=== PATIENT | female | born 1970 | race Two or more races ===

== ENCOUNTER → 2016-07-18 | Outpatient (CLI) | payer BC ==
[2016-07-18 17:07] LABS: CHLORIDE,CL 107 mmol/L (98-110); SODIUM,NA 137 mmol/L (136-146)
== END ==
LOC: MW.LAB 16:17
PROVIDERS: ATTEND Internal Medicine Rheumatology
DX: Z03.6 Encounter for observation for suspected toxic effect from ingested substance ruled out (principal); M06.9 Rheumatoid arthritis, unspecified
CPT/HCPCS: 36415; 80053; 85027; 86140

== ENCOUNTER 2017-04-14 15:40 | Emergency (ER) | payer BC ==
--- NOTE | 2017-04-14 16:11 | EDM.PDOC ---
ED HPI GENERAL MEDICAL PROBLEM - General Chief Complaint: General Stated Complaint: PER PT. SHE IS BEING TREATED FOR THE FLU Time Seen by Provider: 04/14/17 15:59 - History of Present Illness INITIAL COMMENTS - FREE TEXT/NARRATIVE: HISTORY AND PHYSICAL: History of present illness: Patient 46-year-old white female presents with a concern of cough myalgias history of fever and dizziness she states she was treated empirically recently with Tamiflu she did get a flu immunization. She denies chest pain or shortness of breath denies abdominal pain he states she has been taking fluids without any nausea or vomiting Review of systems: As per history of present illness and below otherwise all systems reviewed and negative. Past medical history: As per history of present illness and as reviewed below otherwise noncontributory. Surgical history: As per history of present illness and as reviewed below otherwise noncontributory. Social history: No reported history of drug or alcohol abuse. Family history: As per history of present illness and as reviewed below otherwise noncontributory. Physical exam: HEENT: Atraumatic, normocephalic, pupils reactive, negative for conjunctival pallor or scleral icterus, mucous membranes moist, throat clear, neck supple, nontender, trachea midline. Lungs: Clear to auscultation, breath sounds equal bilaterally, chest nontender. Heart: S1S2, regular, negative for clicks, rubs, or JVD. Abdomen: Soft, nondistended, nontender. Negative for masses or hepatosplenomegaly. Negative for costovertebral tenderness. Pelvis: Stable nontender. Genitourinary: Deferred. Rectal: Deferred. Extremities: Atraumatic, negative for cords or calf pain. Neurovascular unremarkable. Neuro: Awake, alert, oriented. Cranial nerves II through XII unremarkable. Cerebellum unremarkable. Motor and sensory unremarkable throughout. Exam nonfocal. Diagnostics: CBC CMP UA chest x-ray EKG influenza screen Therapeutics: None Impression: #1 viral syndrome Definitive disposition and diagnosis as appropriate pending reevaluation and review of above. - Related Data Allergies Allergy/AdvReac Type Severity Reaction Status Date / Time hydrocodone Allergy Hives Verified 04/14/17 16:14 Home Meds: Home Meds Calcium Carb & Citrate/Vit D3 [Citracal + D ER] 1 tab PO DAILY 09/29/14 [History ] Etanercept [Enbrel] 1 injection IM WEEKLY 09/29/14 [History] Fish Oil/[place]-3 Fatty Acids [Fish Oil 1,000 MG] 1 tab PO DAILY 09/29/14 [ History] Folic Acid 1 tab PO DAILY 09/29/14 [History] Hydroxychloroquine [Plaquenil] 200 mg PO DAILY 09/29/14 [History] Methotrexate 5 tab PO WEEKLY 09/29/14 [History] predniSONE [Prednisone] 20 mg PO WEEKLY 09/30/14 [History] Cranberry 1 tab PO DAILY 08/21/15 [History] Cream Base No.103 [Lipovan] 1 applic TOP ASDIRECTED PRN 08/21/15 [History] Loperamide [Imodium] 1 tab PO ASDIRECTED PRN 08/21/15 [History] Multivits,Ca,Minerals/Iron/FA [One-A-Day Women's] 1 tab PO DAILY 08/21/15 [ History] Sertraline [Zoloft] 1 tab PO DAILY 08/21/15 [History] Past Medical History Other HEENT History: uses reading glasses Cardiovascular History: Reports: Arrhythmia Other Cardiovascular History: PAC's, PVC's Respiratory History: Reports: None Other Gastrointestinal History: recent UTI Genitourinary History: Reports: None Other Genitourinary History: stress incontinence CHIEF OF [employer] PATROL History: Reports: Musculoskeletal History: Reports: RA Neurological History: Reports: None Psychiatric History: Reports: Depression Endocrine/Metabolic History: Reports: Obesity/BMI 30+ Hematologic History: Reports: None Immunologic History: Reports: None Oncologic (Cancer) History: Reports: None Dermatologic History: Reports: None - Past Surgical History Female Surgical History: Reports: Section, Hysterectomy Musculoskeletal Surgical History: Reports: Other (See Below) Social & Family History - Tobacco Use Smoking Status *Q: Former Smoker - Recreational Drug Use Recreational Drug Use: No Drug Use in Last 12 Months: No ED ROS GENERAL - Review of Systems Review Of Systems: ROS reveals no pertinent complaints other than HPI. ED EXAM, GENERAL - Physical Exam Exam: See Below (See dictation) Course - Vital Signs Last Recorded V/S: Last Vital Signs Temp 36.9 C 04/14/17 16:00 Pulse 82 04/14/17 16:00 Resp 18 04/14/17 16:00 BP 133/87 04/14/17 16:00 Pulse Ox 96 04/14/17 16:00 - Orders/Labs/Meds Orders: Active Orders 24 hr Category Date Time Status EKG Documentation Completion [RC] STAT Care 04/14/17 16:12 Active Labs: Laboratory Tests 04/14/17 04/14/17 04/14/17 Range/Units 16:29 16:29 17:10 WBC 6.89 (4.0-11.0) K/uL RBC 4.22 L (4.30-5.90) M/uL Hgb 13.5 (12.0-16.0) g/dL Hct 39.0 (36.0-46.0) % MCV 92.4 (80.0-98.0) fL MCH 32.0 (27.0-32.0) pg MCHC 34.6 (31.0-37.0) g/dL RDW Std Deviation 40.9 (28.0-62.0) fl RDW Coeff of [place]ma 12 (11.0-15.0) % Plt Count 212 (150-400) K/uL MPV 9.80 (7.40-12.00) fL Neut % (Auto) 51.1 (48.0-80.0) % Lymph % (Auto) 39.3 (16.0-40.0) % [place] % (Auto) 8.0 (0.0-15.0) % Eos % (Auto) 1.3 (0.0-7.0) % Baso % (Auto) 0.3 (0.0-1.5) % Neut # (Auto) 3.5 (1.4-5.7) K/uL Lymph # (Auto) 2.7 H (0.6-2.4) K/uL [place] # (Auto) 0.6 (0.0-0.8) K/uL Eos # (Auto) 0.1 (0.0-0.7) K/uL Baso # (Auto) 0.0 (0.0-0.1) K/uL Nucleated RBC % 0.0 /100WBC Nucleated RBCs # 0 K/uL Sodium 141 (136-146) mmol/L Potassium 4.0 (3.5-5.1) mmol/L Chloride 111 H (98-110) mmol/L Carbon Dioxide 21 (21-31) mmol/L BUN 8 (6.0-23.0) mg/dL Creatinine 0.7 (0.6-1.5) mg/dL Est Cr Clr Drug Dosing 100.22 mL/min Estimated GFR (MDRD) > 60.0 ml/min Glucose 118 H (60-110) mg/dL Calcium 9.0 (8.8-10.8) mg/dL Total Bilirubin 0.4 (0.1-1.5) mg/dL AST 26 (5-40) IU/L ALT 40 (8-54) IU/L Alkaline Phosphatase 61 (40-150) Total Protein 6.8 (6.0-8.0) g/dL Albumin 4.1 (3.5-5.0) g/dL Globulin 2.7 (2.0-3.5) g/dL Albumin/Globulin Ratio 1.5 (1.3-2.8) Urine Color YELLOW Urine Appearance CLEAR Urine pH 7.0 (5.0-8.0) Ur Specific [place] 1.015 (1.001-1.035) Urine Protein NEGATIVE (NEGATIVE) mg/dL Urine Glucose (UA) NEGATIVE (NEGATIVE) mg/dL Urine Ketones NEGATIVE (NEGATIVE) mg/dL Urine Occult Blood NEGATIVE (NEGATIVE) Urine Nitrite NEGATIVE (NEGATIVE) Urine Bilirubin NEGATIVE (NEGATIVE) Urine Urobilinogen 0.2 (<2.0) EU/dL Ur Leukocyte Esterase NEGATIVE (NEGATIVE) Urine RBC 0-1 (0-2/HPF) Urine WBC 0-1 (0-5/HPF) Ur Epithelial Cells RARE (NONE-FEW) Urine Bacteria RARE (NEGATIVE) Departure - Departure Time of Disposition: 17:33 Disposition: Home, Self-Care 01 Condition: Good Clinical Impression: Influenza - Discharge Information Referrals: PCP,None [Primary Care Provider] - Forms: ED Department Discharge Additional Instructions: The following information is given to patients seen in the emergency department who are being discharged to home. This information is to outline your options for follow-up care. We provide all patients seen in our emergency department with a follow-up referral. The need for follow-up, as well as the timing and circumstances, are variable depending upon the specifics of your emergency department visit. If you don't have a primary care physician on staff, we will provide you with a referral. We always advise you to contact your personal physician following an emergency department visit to inform them of the circumstance of the visit and for follow-up with them and/or the need for any referrals to a consulting specialist. The emergency department will also refer you to a specialist when appropriate. This referral assures that you have the opportunity for followup care with a specialist. All of these measure are taken in an effort to provide you with optimal care, which includes your followup. Under all circumstances we always encourage you to contact your private physician who remains a resource for coordinating your care. When calling for followup care, please make the office aware that this follow-up is from your recent emergency room visit. If for any reason you are refused follow-up, please contact the [facility] emergency department at and asked to speak to the emergency department charge nurse. Motrin/Tylenol as directed continue current medications push fluids return as needed as discussed - My Orders Last 24 Hours: My Active Orders 04/14/17 16:12 EKG Documentation Completion [RC] STAT - Assessment/Plan Last 24 Hours: My Active Orders 04/14/17 16:12 EKG Documentation Completion [RC] STAT
[2017-04-14 16:59] LABS: CHLORIDE,CL 111 mmol/L (98-110); SODIUM,NA 141 mmol/L (136-146)
--- NOTE | 2017-04-14 17:25 | CR ---
EXAM DATE: 04/14/17 PATIENT'S AGE: 46 Patient: KATHY VÁSQUEZ Facility: [place], [place] Site . Site : 1970 Study: XRay Chest [id number] 4:49:16 PM Ordering Physician: Elo Cobb Final Report: INDICATION: Cough. Short of breath. TECHNIQUE: PA and lateral views of the chest. COMPARISON: 08/07/2014. FINDINGS: Cardiac, mediastinal and hilar contours are normal. Normal pulmonary vasculature. Lungs are clear. No pleural fluid or pneumothorax. IMPRESSION: No signs of acute thoracic disease. Dictated by Jeet Snowden MD @ 04/14/2017 5:06:10 PM Dictated by: Jeet Snowden MD @ 04/14/2017 17:06:19 (Electronic Signature) Report Signed by Proxy. [facility] CENTERDarshan
[2017-04-14 17:59] VITALS: BP 122/81
== END 2017-04-14 17:44 | disposition home or self-care (01) ==
LOC: MW.ED 15:40
DX: J10.1 Influenza due to other identified influenza virus with other respiratory manifestations (principal); B34.9 Viral infection, unspecified; F32.9 Major depressive disorder, single episode, unspecified; Z88.5 Allergy status to narcotic agent; Z87.891 Personal history of nicotine dependence; Z79.899 Other long term (current) drug therapy
CPT/HCPCS: 36415; 71046; 71046-26; 80053; 81001; 85025; 87804; 93005; 99283; 99285-25

== ENCOUNTER 2024-02-23 19:03 | Emergency (ER) | payer BC ==
[2024-02-23] MEDS: Rabies Immune Globulin/PF (HyperRAB) 300 UNIT/ML 1 ML SDV IM ONE (20:30)
[2024-02-23] MEDS: Rabies Vaccine (Avian) 2.5 Unit Inj Kit IM ONE (20:34)
[2024-02-24 03:09] VITALS: BP 117/69; PULSE 60
== END 2024-02-23 21:10 | disposition home or self-care (01) ==
LOC: MW.ED 19:03
DX: S61.451A Open bite of right hand, initial encounter (principal); F17.210 Nicotine dependence, cigarettes, uncomplicated; E66.9 Obesity, unspecified; Z29.14 Encounter for prophylactic rabies immune globulin; Z23 Encounter for immunization; Z88.5 Allergy status to narcotic agent; Z79.899 Other long term (current) drug therapy; W55.01XA Bitten by cat, initial encounter
CPT/HCPCS: 90375; 90471; 90675; 96372; 99283-25